=== PATIENT | male | born 1930 | race Caucasian/White ===

== ENCOUNTER 2016-08-11 08:29 | Inpatient (IN) | payer OTHER ==
[~2016-08-11] VITALS: Ht 188 cm; Wt 87.7 kg
[~2016-08-11 08:29] MED LIST: CARDIZEM LA180 MG PO; XARELTO20 MG PO
[2016-08-11 09:45] LABS: ADD MIUA? YES; BILIRUBIN NEGATIVE; BLOOD LARGE; COLOR YELLOW ((YELLOW)); GLUCOSE (STRIP) NEGATIVE; KETONES NEGATIVE; LEUKOCYTES LARGE; NITRITE NEGATIVE; PROTEIN (STRIP) 30; SPECIFIC GRAVITY 1.015 (1.000-1.030); UROBILINOGEN 0.2 MG/DL (0.2-1.0)
[2016-08-11 09:49] LABS: MCHC 33.8 G/DL (30.0-36.0); MCV 97.8 FL (86-99); MEAN PLAT.VOLUME 11.3 uM^3 (9.0-12.4); PLATELET COUNT 132 K/uL (156-360); RBC DIS.WIDTH-CV 12.5 % (11.8-14.6); RBC DIS.WIDTH-SD 44.7 % (39-53); RED BLOOD COUNT 4.09 M/uL (4.00-5.50); WHITE BLOOD COUNT 7.9 K/uL (4.1-10.2)
[2016-08-11 10:03] LABS: INTER. NORMALIZED RATIO 1.3; PROTHROMBIN TIME 12.9 (9.2-11.2); PTT 26.1 (25-32)
[2016-08-11 10:06] LABS: CHLORIDE 107 mEq/L (99-109); SODIUM 138 mEq/L (136-147)
[2016-08-11 10:07] LABS: BACTERIA NONE SEEN /HPF; CALCIUM OXALATE CRYSTALS 3+ /HPF; EPITHELIAL CELLS RARE /HPF; MUCUS TRACE /LPF; RED BLOOD CELLS TNTC /HPF (0-5); UCUL ADDED? YES; WHITE BLOOD CELLS TNTC /HPF (0-5)
[2016-08-11 10:08] LABS: GLUCOSE 110 mg/dL (70-99)
[2016-08-11 10:10] LABS: ANION GAP 10 MEQ/L (2-14); TOTAL BILIRUBIN 2.6 mg/dL (0.0-1.0)
[2016-08-11 10:12] LABS: ALKALINE PHOSPHATASE 73 IU/L (3-129); GFR ESTIMATE (CALCULATED) > 59 mL/min/
[2016-08-11 10:13] LABS: UREA NITROGEN (BUN) 21 mg/dL (9-23)
[2016-08-11 10:14] LABS: DIRECT BILIRUBIN 0.9 mg/dL (0.0-0.3)
[2016-08-11 10:17] LABS: TROP-I INTERPRETATION NEGATIVE; TROPONIN-I < 0.01 ng/mL (0.0-0.30)
[2016-08-11 10:46] LABS: ABS NEUTROPHIL COUNT 7.8; BAND NEUTROPHILS 18.2 % (0-8.0); EOSINOPHIL ABS CT 0; INSTRUMENT ABS NEUTROPHIL CT 7.5 K/uL; LYMPHOCYTES 0.9 % (15.0-45.0); PLAT.SUFFICIENCY DECREASED; SEG.NEUTROPHILS 80.9 % (46.0-76.0); TOX.VACUOLIZATION 1+
[2016-08-11] MEDS ORDERED: LUTEIN40 MG PO (12:42)
[2016-08-11] MEDS ORDERED: EYE HEALTH ADU1 EACH PO (12:43)
[2016-08-11] MEDS ORDERED: CARDIZEM CD,CA180 MG PO (12:45)
[2016-08-11 18:06] VITALS: BP 107/56
[2016-08-11 21:51] VITALS: BP 119/72
[2016-08-11 22:00] VITALS: BP 141/71
[2016-08-12 02:03] VITALS: BP 130/75
[2016-08-12 06:15] LABS: ALKALINE PHOSPHATASE 46 IU/L (3-129); ANION GAP 8 MEQ/L (2-14); CHLORIDE 109 MEQ/L (99-109); GFR ESTIMATE (CALCULATED) > 59 mL/min/; GLUCOSE 96 mg/dL (70-99); POTASSIUM 3.9 MEQ/L (3.7-5.4); SAMPLE HEMOLYSIS CHECK 0; SAMPLE ICTERIC CHECK 0; SAMPLE LIPEMIA CHECK 0; SODIUM 139 MEQ/L (136-147); UREA NITROGEN (BUN) 20 mg/dL (9-23)
[2016-08-12 06:34] LABS: EOSINOPHIL (%) 0.5 % (0-5); HEMATOCRIT 33.4 % (38.0-50.0); IMMATURE GRANULOCYTE (%) 0.5 % (0.0-0.7); INSTRUMENT ABS NEUTROPHIL CT 5.3 K/uL; LYMPHOCYTE COUNT 0.4 K/uL (1.0-2.8); MCH 33.7 PG (29.0-34.0); MCHC 33.8 G/DL (30.0-36.0); MCV 99.7 FL (86-99); MONOCYTE (%) 8.3 % (3-12); MONOCYTE COUNT 0.5 K/uL (0-0.8); NEUTROPHIL (%) 84.4 % (45-76); NEUTROPHIL COUNT 5.3 K/uL (1.8-6.4); RBC DIS.WIDTH-CV 12.6 % (11.8-14.6); RBC DIS.WIDTH-SD 45.9 % (39-53); RED BLOOD COUNT 3.35 M/uL (4.00-5.50); WHITE BLOOD COUNT 6.3 K/uL (4.1-10.2)
[2016-08-12 07:00] VITALS: BP 108/68
[2016-08-12 08:09] LABS: MEAN PLAT.VOLUME 9.6 uM^3 (9.0-12.4); PLAT.SUFFICIENCY DECREASED
[2016-08-12 08:18] LABS: PLATELET COUNT 87 K/uL (156-360)
[2016-08-12 15:20] VITALS: BP 111/64
[2016-08-12 21:30] VITALS: BP 148/77
[2016-08-13 00:05] VITALS: BP 130/75
[2016-08-13 05:38] LABS: MCH 33.1 PG (29.0-34.0); MCHC 33.8 G/DL (30.0-36.0); MCV 98.2 FL (86-99); MEAN PLAT.VOLUME 9.8 uM^3 (9.0-12.4); PLATELET COUNT 86 K/uL (156-360); RBC DIS.WIDTH-CV 12.5 % (11.8-14.6); RBC DIS.WIDTH-SD 45.2 % (39-53); RED BLOOD COUNT 3.26 M/uL (4.00-5.50); WHITE BLOOD COUNT 4.7 K/uL (4.1-10.2)
[2016-08-13 06:08] LABS: ANION GAP 5 MEQ/L (2-14); CHLORIDE 110 MEQ/L (99-109); GFR ESTIMATE (CALCULATED) > 59 mL/min/; GLUCOSE 108 mg/dL (70-99); POTASSIUM 3.6 MEQ/L (3.7-5.4); SAMPLE HEMOLYSIS CHECK 0; SAMPLE ICTERIC CHECK 0; SAMPLE LIPEMIA CHECK 0; SODIUM 139 MEQ/L (136-147); UREA NITROGEN (BUN) 11 mg/dL (9-23)
[2016-08-13 06:14] LABS: ABS NEUTROPHIL COUNT 3.6; ANISOCYTOSIS 1+; BAND NEUTROPHILS 0.9 % (0-8.0); EOSINOPHIL ABS CT 0; INSTRUMENT ABS NEUTROPHIL CT 3.2 K/uL; LYMPHOCYTES 13.3 % (15.0-45.0); MACROCYTES 1+; OVALOCYTES 1+; PLAT.SUFFICIENCY DECREASED; SEG.NEUTROPHILS 76.1 % (46.0-76.0)
[2016-08-13 07:32] VITALS: BP 120/70
[2016-08-13 15:25] VITALS: BP 123/72
[2016-08-13 21:00] VITALS: BP 125/78
[2016-08-13 22:41] VITALS: BP 123/68
[2016-08-14 07:08] LABS: EOSINOPHIL COUNT 0.1 K/uL (0-0.3); HEMATOCRIT 35.1 % (38.0-50.0); IMMATURE GRANULOCYTE (%) 0.3 % (0.0-0.7); INSTRUMENT ABS NEUTROPHIL CT 4.3 K/uL; LYMPHOCYTE COUNT 0.6 K/uL (1.0-2.8); MCH 33.3 PG (29.0-34.0); MCHC 33.9 G/DL (30.0-36.0); MCV 98.3 FL (86-99); MEAN PLAT.VOLUME 10.2 uM^3 (9.0-12.4); MONOCYTE (%) 14.8 % (3-12); MONOCYTE COUNT 0.9 K/uL (0-0.8); NEUTROPHIL (%) 72.7 % (45-76); NEUTROPHIL COUNT 4.3 K/uL (1.8-6.4); PLATELET COUNT 109 K/uL (156-360); RBC DIS.WIDTH-CV 12.4 % (11.8-14.6); RBC DIS.WIDTH-SD 44.7 % (39-53); RED BLOOD COUNT 3.57 M/uL (4.00-5.50); WHITE BLOOD COUNT 5.9 K/uL (4.1-10.2)
[2016-08-14 07:30] VITALS: BP 122/73
[2016-08-14 07:36] LABS: ANION GAP 6 MEQ/L (2-14); CHLORIDE 109 MEQ/L (99-109); GFR ESTIMATE (CALCULATED) > 59 mL/min/; GLUCOSE 102 mg/dL (70-99); SAMPLE HEMOLYSIS CHECK 0; SAMPLE ICTERIC CHECK 0; SAMPLE LIPEMIA CHECK 0; SODIUM 141 MEQ/L (136-147); UREA NITROGEN (BUN) 9 mg/dL (9-23)
[2016-08-14 07:38] LABS: POTASSIUM 4.5 MEQ/L (3.7-5.4)
[2016-08-14] MEDS ORDERED: TAMSULOSIN HCL0.4 MG PO ×2 (12:24→14:21)
[2016-08-14] MEDS ORDERED: ROCEPHIN 2 GM VI2 GM IV (12:25)
[2016-08-14] MEDS ORDERED: PYRIDIUM100 MG PO ×2 (12:27→14:21)
== END 2016-08-14 14:30 | disposition home or self-care (01) | DRG 872 ==
LOC: EME 08:29 → EDOF 13:02 → 5EAST 13:02
PROVIDERS: Internal Medicine; Physician Assistant
DX: A41.9 Sepsis, unspecified organism (principal); N41.0 Acute prostatitis; N41.1 Chronic prostatitis; R65.20 Severe sepsis without septic shock; I48.91 Unspecified atrial fibrillation; Z79.01 Long term (current) use of anticoagulants; I10 Essential (primary) hypertension; N40.1 Benign prostatic hyperplasia with lower urinary tract symptoms; R33.8 Other retention of urine; N20.0 Calculus of kidney; N39.41 Urge incontinence; D69.6 Thrombocytopenia, unspecified; Z87.891 Personal history of nicotine dependence; N12 Tubulo-interstitial nephritis, not specified as acute or chronic; N10 Acute pyelonephritis
CPT/HCPCS: 71020; 74176; 80048; 80053; 81003; 82248; 83605; 84484; 85025; 85610; 85730; 87040; 87086; 93005; 99281; 99285; G0103; J0696; J2543; J7030; J7050; S0028

== ENCOUNTER 2016-12-09 00:11 | Inpatient (IN) | payer OTHER ==
[~2016-12-09] VITALS: Ht 188 cm; Wt 88.6 kg
[~2016-12-09 00:11] MED LIST changes: +CARDIZEM CD,CA180 MG PO; +EYE HEALTH ADU1 EACH PO; +LUTEIN40 MG PO; +PYRIDIUM100 MG PO; +ROCEPHIN 2 GM VI2 GM IV; +TAMSULOSIN HCL0.4 MG PO
[2016-12-09 01:47] LABS: EOSINOPHIL (%) 0.3 % (0-5); HEMATOCRIT 42.5 % (38.0-50.0); IMMATURE GRANULOCYTE (%) 0.3 % (0.0-0.7); INSTRUMENT ABS NEUTROPHIL CT 8.3 K/uL; LYMPHOCYTE COUNT 0.6 K/uL (1.0-2.8); MCH 32.6 PG (29.0-34.0); MCHC 33.2 G/DL (30.0-36.0); MCV 98.2 FL (86-99); MONOCYTE (%) 1.7 % (3-12); MONOCYTE COUNT 0.2 K/uL (0-0.8); NEUTROPHIL (%) 91.1 % (45-76); NEUTROPHIL COUNT 8.3 K/uL (1.8-6.4); PLATELET COUNT 132 K/uL (156-360); RBC DIS.WIDTH-CV 12.6 % (11.8-14.6); RED BLOOD COUNT 4.33 M/uL (4.00-5.50); WHITE BLOOD COUNT 9.2 K/uL (4.1-10.2)
[2016-12-09 01:53] LABS: INTER. NORMALIZED RATIO 1.1; PROTHROMBIN TIME 12.5 SEC (10.2-12.9)
[2016-12-09 01:58] LABS: CHLORIDE 106 mEq/L (99-109); POTASSIUM 3.9 mEq/L (3.7-5.4); SODIUM 142 mEq/L (136-147)
[2016-12-09 02:00] LABS: GLUCOSE 114 mg/dL (70-99)
[2016-12-09 02:01] LABS: ANION GAP 8 MEQ/L (2-14)
[2016-12-09 02:02] LABS: TOTAL BILIRUBIN 1.5 mg/dL (0.0-1.0)
[2016-12-09 02:03] LABS: ALKALINE PHOSPHATASE 77 IU/L (3-129)
[2016-12-09 02:04] LABS: GFR ESTIMATE (CALCULATED) > 59 mL/min/
[2016-12-09 02:05] LABS: UREA NITROGEN (BUN) 25 mg/dL (9-23)
[2016-12-09 02:07] LABS: LIPASE 28 U/L (1.0-51.0)
[2016-12-09 02:09] LABS: TROP-I INTERPRETATION NEGATIVE; TROPONIN-I < 0.01 ng/mL (0.0-0.30)
[2016-12-09 02:35] LABS: ADD MIUA? YES; BILIRUBIN NEGATIVE; BLOOD NEGATIVE; COLOR YELLOW ((YELLOW)); GLUCOSE (STRIP) NEGATIVE; KETONES NEGATIVE; LEUKOCYTES NEGATIVE; NITRITE NEGATIVE; PROTEIN (STRIP) NEGATIVE; SPECIFIC GRAVITY 1.019 (1.000-1.030)
[2016-12-09 02:49] LABS: BACTERIA RARE /HPF; EPITHELIAL CELLS RARE /HPF; MUCUS TRACE /LPF; RED BLOOD CELLS 0-5 /HPF (0-5); UCUL ADDED? NO; WHITE BLOOD CELLS 0-5 /HPF (0-5)
[2016-12-09 07:48] VITALS: BP 112/59
[2016-12-09 11:36] VITALS: BP 122/66
[2016-12-09] MEDS ORDERED: ELIQUIS2.5 MG PO (12:23)
[2016-12-09] MEDS ORDERED: IODOPHOR (12:25)
[2016-12-09] MEDS ORDERED: EYE DROPS RIGHT EYE (12:27)
[2016-12-09 16:03] VITALS: BP 111/62
[2016-12-09 20:27] VITALS: BP 90/56
[2016-12-10] VITALS: BP 99/54
[2016-12-10 04:00] VITALS: BP 93/55
[2016-12-10 06:53] LABS: ALKALINE PHOSPHATASE 68 IU/L (3-129); ANION GAP 8 MEQ/L (2-14); CHLORIDE 103 MEQ/L (99-109); DIRECT BILIRUBIN 3.2 mg/dL (0.0-0.3); GFR ESTIMATE (CALCULATED) > 59 mL/min/; GLUCOSE 88 mg/dL (70-99); MAGNESIUM 1.9 mg/dl (1.3-2.7); POTASSIUM 3.7 MEQ/L (3.7-5.4); SAMPLE HEMOLYSIS CHECK 0; SAMPLE ICTERIC CHECK 1; SAMPLE LIPEMIA CHECK 0; SODIUM 138 MEQ/L (136-147); TOTAL BILIRUBIN 4.8 MG/DL (0.0-1.0); UREA NITROGEN (BUN) 24 mg/dL (9-23)
[2016-12-10 06:54] LABS: EOSINOPHIL (%) 1.2 % (0-5); EOSINOPHIL COUNT 0.1 K/uL (0-0.3); HEMATOCRIT 35.2 % (38.0-50.0); IMMATURE GRANULOCYTE (%) 0.5 % (0.0-0.7); IMMATURE GRANULOCYTE COUNT 0.1 K/uL; INSTRUMENT ABS NEUTROPHIL CT 8.1 K/uL; LYMPHOCYTE COUNT 0.6 K/uL (1.0-2.8); MCH 33.6 PG (29.0-34.0); MCHC 33.8 G/DL (30.0-36.0); MCV 99.4 FL (86-99); MEAN PLAT.VOLUME 9.7 uM^3 (9.0-12.4); MONOCYTE (%) 6.5 % (3-12); MONOCYTE COUNT 0.6 K/uL (0-0.8); NEUTROPHIL (%) 85.6 % (45-76); NEUTROPHIL COUNT 8.1 K/uL (1.8-6.4); PLAT.SUFFICIENCY DECREASED; RBC DIS.WIDTH-CV 13.1 % (11.8-14.6); RBC DIS.WIDTH-SD 47.8 % (39-53); RED BLOOD COUNT 3.54 M/uL (4.00-5.50); WHITE BLOOD COUNT 9.4 K/uL (4.1-10.2)
[2016-12-10 07:03] LABS: PLATELET COUNT 92 K/uL (156-360)
[2016-12-10 07:34] VITALS: BP 101/60
[2016-12-10 11:28] VITALS: BP 116/69
[2016-12-10 15:49] VITALS: BP 135/77
[2016-12-10 20:59] VITALS: BP 135/76
[2016-12-11] VITALS (7 sets, daily range): BP systolic 116–170; BP diastolic 57–81
[2016-12-11 07:00] LABS: INTER. NORMALIZED RATIO 1.2; PROTHROMBIN TIME 13.4 SEC (10.2-12.9)
[2016-12-11 07:02] LABS: PTT 30.1 SEC (25-37)
[2016-12-11 07:11] LABS: EOSINOPHIL (%) 1.6 % (0-5); EOSINOPHIL COUNT 0.1 K/uL (0-0.3); HEMATOCRIT 39.5 % (38.0-50.0); IMMATURE GRANULOCYTE (%) 0.7 % (0.0-0.7); IMMATURE GRANULOCYTE COUNT 0.1 K/uL; INSTRUMENT ABS NEUTROPHIL CT 7.5 K/uL; LYMPHOCYTE COUNT 0.7 K/uL (1.0-2.8); MCH 33.8 PG (29.0-34.0); MCHC 34.9 G/DL (30.0-36.0); MCV 96.8 FL (86-99); MEAN PLAT.VOLUME 9.8 uM^3 (9.0-12.4); MONOCYTE (%) 6.4 % (3-12); MONOCYTE COUNT 0.6 K/uL (0-0.8); NEUTROPHIL COUNT 7.5 K/uL (1.8-6.4); RBC DIS.WIDTH-CV 12.7 % (11.8-14.6); RBC DIS.WIDTH-SD 45.1 % (39-53); RED BLOOD COUNT 4.08 M/uL (4.00-5.50)
[2016-12-11 07:12] LABS: PLATELET COUNT 123 K/uL (156-360)
[2016-12-11 07:27] LABS: ALKALINE PHOSPHATASE 92 IU/L (3-129); ANION GAP 11 MEQ/L (2-14); CHLORIDE 106 MEQ/L (99-109); DIRECT BILIRUBIN 2.2 mg/dL (0.0-0.3); GFR ESTIMATE (CALCULATED) > 59 mL/min/; GLUCOSE 90 mg/dL (70-99); POTASSIUM 3.8 MEQ/L (3.7-5.4); SAMPLE HEMOLYSIS CHECK 0; SAMPLE ICTERIC CHECK 1; SAMPLE LIPEMIA CHECK 0; SODIUM 140 MEQ/L (136-147); UREA NITROGEN (BUN) 15 mg/dL (9-23)
[2016-12-11 07:29] LABS: TOTAL BILIRUBIN 3.7 MG/DL (0.0-1.0)
[2016-12-11 07:30] LABS: ALKALINE PHOSPHATASE 92 IU/L (3-129); TOTAL BILIRUBIN 3.7 MG/DL (0.0-1.0)
[2016-12-12 06:25] VITALS: BP 144/82
[2016-12-12 06:56] LABS: HEMATOCRIT 37.4 % (38.0-50.0); MCH 32.1 PG (29.0-34.0); MCHC 32.9 G/DL (30.0-36.0); MCV 97.7 FL (86-99); MEAN PLAT.VOLUME 9.6 uM^3 (9.0-12.4); PLATELET COUNT 96 K/uL (156-360); RBC DIS.WIDTH-CV 12.6 % (11.8-14.6); RBC DIS.WIDTH-SD 45.1 % (39-53); RED BLOOD COUNT 3.83 M/uL (4.00-5.50); WHITE BLOOD COUNT 6.5 K/uL (4.1-10.2)
[2016-12-12 07:27] LABS: ALKALINE PHOSPHATASE 92 IU/L (3-129); ANION GAP 10 MEQ/L (2-14); CHLORIDE 106 MEQ/L (99-109); DIRECT BILIRUBIN 1.8 mg/dL (0.0-0.3); GFR ESTIMATE (CALCULATED) > 59 mL/min/; GLUCOSE 128 mg/dL (70-99); POTASSIUM 4.3 MEQ/L (3.7-5.4); SAMPLE HEMOLYSIS CHECK 0; SAMPLE ICTERIC CHECK 1; SAMPLE LIPEMIA CHECK 0; SODIUM 139 MEQ/L (136-147); UREA NITROGEN (BUN) 12 mg/dL (9-23)
[2016-12-12 07:32] LABS: ALKALINE PHOSPHATASE 92 IU/L (3-129); ANION GAP 9 MEQ/L (2-14); CHLORIDE 108 MEQ/L (99-109); GFR ESTIMATE (CALCULATED) > 59 mL/min/; GLUCOSE 130 mg/dL (70-99); POTASSIUM 4.4 MEQ/L (3.7-5.4); SAMPLE HEMOLYSIS CHECK 0; SAMPLE ICTERIC CHECK 1; SAMPLE LIPEMIA CHECK 0; SODIUM 140 MEQ/L (136-147); TOTAL BILIRUBIN 2.8 MG/DL (0.0-1.0); TOTAL BILIRUBIN 2.9 MG/DL (0.0-1.0); UREA NITROGEN (BUN) 13 mg/dL (9-23)
[2016-12-12 07:47] VITALS: BP 137/83
[2016-12-12 11:10] VITALS: BP 156/86
[2016-12-12] MEDS ORDERED: METRONIDAZOLE500 MG PO (12:38)
[2016-12-12] MEDS ORDERED: ROCEPHIN 2 GM VI2 GM IV (12:39)
== END 2016-12-12 14:30 | disposition home or self-care (01) | DRG 445 ==
LOC: EME 00:11 → EDOF 05:59 → 5EAST 05:59 → ENRESERV 06:07 → 5EAST 07:26 → ENPENDDIS 12-12 → 5EAST 12-12 14:30
PROVIDERS: Emergency Medicine; Internal Medicine; Internal Medicine Gastroenterology
PROC: 0FC98ZZ Extirpation of Matter from Common Bile Duct, Via Natural or Artificial Opening Endoscopic (ICD-10-PCS; principal; 2016-12-11)
DX: K80.32 Calculus of bile duct with acute cholangitis without obstruction (principal); R78.81 Bacteremia; K57.10 Diverticulosis of small intestine without perforation or abscess without bleeding; D64.9 Anemia, unspecified; I10 Essential (primary) hypertension; D69.6 Thrombocytopenia, unspecified; I48.2 Chronic atrial fibrillation; N40.0 Benign prostatic hyperplasia without lower urinary tract symptoms; Z87.891 Personal history of nicotine dependence; Z79.01 Long term (current) use of anticoagulants; Z90.49 Acquired absence of other specified parts of digestive tract
CPT/HCPCS: 71020; 71260; 74177; 74330; 80048; 80053; 80076; 81003; 82248; 83605; 83690; 83735; 84484; 85025; 85027; 85610; 85730; 87040; 87077; 87081; 87086; 87186; 87801; 93005; 94799; 99281; 99285; C1757; C1769; J0295; J0330; J0696; J1100; J2405; J2765; J3010; J7030; J7050; S0028